=== PATIENT | male | born 1965 | race Caucasian/White ===

== ENCOUNTER 2023-02-21 01:01 | Inpatient (IN) | payer MEDICAID, OTHER ==
[~2023-02-21] VITALS: Ht 188 cm; Wt 112.4 kg
[2023-02-21] VITALS (10 sets, daily range): BP systolic 104–134; BP diastolic 60–81
[2023-02-21 01:37] LABS: BASOPHILS # (AUTO) 0.1 10^3/uL (0.0-0.1); BASOPHILS % (AUTO) 1 % (0-10); EOSINOPHILS # (AUTO) 0.4 10^3/uL (0.0-0.3); EOSINOPHILS % (AUTO) 1 % (0-10); HEMATOCRIT 45 % (40-54); HEMOGLOBIN 15.1 g/dL (13.3-17.7); LYMPHOCYTES # (AUTO) 2.1 10^3/uL (1.0-4.0); LYMPHOCYTES % (AUTO) 8 % (12-44); MEAN CORPUSCULAR HEMOGLOBIN 29 pg (25-34); MEAN CORPUSCULAR HGB CONC 34 g/dL (32-36); MEAN CORPUSCULAR VOLUME 87 fL (80-99); MEAN PLATELET VOLUME 9.2 fL (9.0-12.2); MONOCYTES # (AUTO) 2.8 10^3/uL (0.0-1.0); MONOCYTES % (AUTO) 11 % (0-12); NEUTROPHILS # (AUTO) 20.1 10^3/uL (1.8-7.8); NEUTROPHILS % (AUTO) 78 % (42-75); PLATELET COUNT 329 10^3/uL (130-400); WHITE BLOOD COUNT 25.6 10^3/uL (4.3-11.0)
[2023-02-21 01:48] LABS: CHLORIDE 101 MMOL/L (98-107); SODIUM 129 MMOL/L (135-145)
--- NOTE | 2023-02-21 01:48 | ED Lower Extremity ---
General Chief Complaint: Skin/Wound Problems Stated Complaint: LEFT LEG SWOLLEN,RED,DIABETIC Nursing Triage Note: PATIENT ARRIVED WITH COMPLAINT OF LEFT LOWER LEG REDNESS/SWELLING/PAIN. PATIENT VERBALIZED DIABETIC FOR ONE MONTH, STATES LIVES IN , BUT DOESNT HAVE A LOCAL PHYSICIAN. PATIENT UNABLE TO PUT WEIGHT ON LEFT LEG/FOOT. Source: patient History of Present Illness Date Seen by Provider: Feb 21, 2023 Time Seen by Provider: 01:20 Initial Comments PT ARRIVES VIA POV WITH A FEMALE PT STATES HE IS HERE VISITING FROM [place] C/O PAIN, REDNESS, AND SWELLING TO LEFT LOWER LEG, AND NOTICED A SMALL SORE ON HIS CALF YESTERDAY NO KNOWN INJURY NO KNOWN FEVER, BUT HAS BEEN SWEATING WHEN HE SLEEPS YESTERDAY AND TODAY, AND HAS BEEN SLEEPING MORE YESTERDAY AND TODAY PT STATES HE WAS HOSPITALIZED AT [facility] FOR 4 DAYS, ABOUT 2 MONTHS AGO, AND WAS DIAGNOSED WITH DIABETES HE HAS NOT FOLLOWED UP WITH ANYONE, AND IS NOT TAKING ANY MEDICATIONS OF ANY KIND HE DOES NOT HAVE A DR ANYWHERE PT STATES HE WAS DIAGNOSED WITH A BRAIN TUMOR--"CANCER"-- IN 2004 AND STATES IT WAS "INOPERABLE" AND HE STATES THAT HE REFUSED ALL TREATMENT --NO CHEMO, NO RADIATION HE DOES NOT SEE AN ONCOLOGIST OR NEUROLOGIST HE SMOKES 1 PPD HE HAS HISTORY OF ALCOHOL ABUSE--DRANK 1 LITER OF WHISKEY PLUS A CASE OF BEER EVERY DAY--CLAIMS NONE X 24 YEARS HE ADMITS TO MARIJUANA USE "YEARS AGO", AND DENIES ANY RECENT USE. DENIES EVER USING ANY OTHER DRUGS OF ANY KIND. PCP: NONE Allergies and Home Medications Allergies Coded Allergies: NSAIDS (Non-Steroidal Anti-Inflamma (Unverified Allergy, Severe, Anaphylaxis, 02/21/23) aspirin (Unverified Allergy, Severe, Anaphylaxis, 02/21/23) Review of Systems Constitutional: see HPI, diaphoresis, malaise EENTM: no symptoms reported Respiratory: no symptoms reported Cardiovascular: no symptoms reported Gastrointestinal: no symptoms reported Genitourinary: no symptoms reported Musculoskeletal: see HPI Skin: see HPI Psychiatric/Neurological: No Symptoms Reported Past Alzbrkx-Mlnxka-Fxjego Hx Patient Social History Tobacco Use?: Yes Tobacco type used: Cigarettes Smoking Status: Current Everyday Smoker Substance use?: Yes Substance type: Marijuana Alcohol Use?: Yes Alcohol type: Beer, Hard Liquor Past Medical History Surgeries: No Respiratory: No Cardiac: No Neurological: Yes Brain Tumor Genitourinary: No Gastrointestinal: No Musculoskeletal: No Endocrine: Yes (DX 12/2022) Diabetes, Non-Insulin dep Cancer: Yes Brain Did You Recieve Any Treatments: No PT CLAIMS HE WAS DX WITH BRAIN TUMOR THAT WAS CANCER IN 2004. HE STATES IT IS "INOPERABLE" AND HE REFUSED ALL TREATMENT--NO CHEMO OR RADIATION Psychosocial: No Integumentary: No Blood Disorders: No Family Medical History SOCIAL HISTORY: HE SMOKES 1 PPD HE HAS HISTORY OF ALCOHOL ABUSE--DRANK 1 LITER OF WHISKEY PLUS A CASE OF BEER EVERY DAY--CLAIMS NONE X 24 YEARS HE ADMITS TO MARIJUANA USE "YEARS AGO", AND DENIES ANY RECENT USE. DENIES EVER USING ANY OTHER DRUGS OF ANY KIND. Physical Exam Vital Signs Vital Signs - First Documented 02/21/23 01:16 Temp 37.2 Pulse 114 Resp 20 B/P (MAP) 124/80 (95) Pulse Ox 95 O2 Delivery Room Air Capillary Refill : Less Than 3 Seconds Height, Weight, BMI Height: '" Weight: lbs. oz. kg; 32.00 BMI Method: Progress/Results/Core Measures Results/Orders Lab Results Laboratory Tests Test 02/21/23 01:25 02/21/23 01:26 Range/Units White Blood Count 25.6 H 4.3-11.0 10^3/uL Red Blood Count 5.17 4.30-5.52 10^6/uL Hemoglobin 15.1 13.3-17.7 g/dL Hematocrit 45 40-54 % Mean Corpuscular Volume 87 80-99 fL Mean Corpuscular Hemoglobin 29 25-34 pg Mean Corpuscular Hemoglobin Concent 34 32-36 g/dL Red Cell Distribution Width 12.2 10.0-14.5 % Platelet Count 329 130-400 10^3/uL Mean Platelet Volume 9.2 9.0-12.2 fL Immature Granulocyte % (Auto) 1 % Neutrophils (%) (Auto) 78 H 42-75 % Lymphocytes (%) (Auto) 8 L 12-44 % Monocytes (%) (Auto) 11 0-12 % Eosinophils (%) (Auto) 1 0-10 % Basophils (%) (Auto) 1 0-10 % Neutrophils # (Auto) 20.1 H 1.8-7.8 10^3/uL Lymphocytes # (Auto) 2.1 1.0-4.0 10^3/uL Monocytes # (Auto) 2.8 H 0.0-1.0 10^3/uL Eosinophils # (Auto) 0.4 H 0.0-0.3 10^3/uL Basophils # (Auto) 0.1 0.0-0.1 10^3/uL Immature Granulocyte # (Auto) 0.2 H 0.0-0.1 10^3/uL Glucometer 249 H 70-110 MG/DL My Orders Orders - MARIA ALEJANDRA SALEEM DO Ed Iv/Invasive Line Start (02/21/23:21) Monitor-Rhythm Ecg Trace Only (02/21/23) Alcohol (02/21/23) Cbc With Automated Diff (02/21/23) Comprehensive Metabolic Panel (02/21/23) Hs C Reactive Protein (02/21/23) Drug Screen Stat (Urine) (02/21/23) Lactic Acid Analyzer (02/21/23) Magnesium (02/21/23) Protime With Inr (02/21/23) Partial Thromboplastin Time (02/21/23) Ua Culture If Indicated (02/21/23) Blood Culture (02/21/23) Erythrocyte Sedimentation Rate (02/21/23) Myoglobin Serum (02/21/23) Ed Iv/Invasive Line Start (02/21/23) Ed Iv/Invasive Line Start (02/21/23:) Vital Signs Adult Sepsis Patie Q15M (02/21/23 01:21) O2 (02/21/23:) Remove Rings In Anticipation O (02/21/23:) Accucheck Stat ONCE (02/21/23) Manual Differential (02/21/23 01:25) Vital Signs/I&O 02/21/23 01:16 Temp 37.2 Pulse 114 Resp 20 B/P (MAP) 124/80 (95) Pulse Ox 95 O2 Delivery Room Air Blood Pressure Mean: 95 FSBG Bedside Testing Finger Stick Blood Glucose: 249 Blood Glucose Action Taken: RN NOTIFIED Departure Departure-Patient Inst. Referrals: NO,LOCAL PHYSICIAN (PCP/Family) Primary Care Physician MARIA ALEJANDRA SALEEM DO Feb 21, 2023 01:48
[2023-02-21 01:49] LABS: CALCIUM 9.7 MG/DL (8.5-10.1); INR 1.2 (0.8-1.4); PROTHROMBIN TIME PATIENT 15.6 SEC (12.2-14.7)
[2023-02-21 01:51] LABS: GLUCOSE 246 MG/DL (70-105)
[2023-02-21 01:52] LABS: BILIRUBIN,TOTAL 1.1 MG/DL (0.1-1.0); CARBON DIOXIDE 19 MMOL/L (21-32)
[2023-02-21 01:54] LABS: ALKALINE PHOSPHATASE 90 U/L (40-136)
[2023-02-21 01:55] LABS: CREATININE SERUM 0.87 MG/DL (0.60-1.30); GFR ESTIMATED 101
[2023-02-21 01:56] LABS: BUN/CREATININE RATIO 10
[2023-02-21 01:57] LABS: ALANINE AMINOTRANSFERASE 16 U/L (0-55)
[2023-02-21 01:58] LABS: MAGNESIUM 1.8 MG/DL (1.6-2.4)
[2023-02-21] MEDS ORDERED: PIPERACILLIN SODIUM/TAZOBACTAM 4.5 GM in NS (IVPB) 100 ML IV ONE (02:00)
[2023-02-21] MEDS ORDERED: NS IV 1000 ML 1,000 ML IV SCH ×2 (02:00→03:00)
[2023-02-21 02:08] LABS: EOSINOPHILS % (MANUAL) 1 %; LYMPHOCYTES % (MANUAL) 8 %; MONOCYTES % (MANUAL) 9 %; NEUTROPHILS % (MANUAL) 82 %; RBC MORPH NORMAL
[2023-02-21 02:09] LABS: ERYTHROCYTE SEDIMENTATION RATE 22 MM/HR (0-30)
[2023-02-21] MEDS: VANCOMYCIN INJECTION 1,000 MG in NS (IVPB) 250 ML IV SCH ×2 (02:47→03:48)
[2023-02-21] MEDS ORDERED: TETANUS,DIPTH,PERTUSS P/F (BOOSTRIX) 0.5 ML VIAL IM ONE (03:15)
[2023-02-21] MEDS ORDERED: fentaNYL INJ 100 MCG/2 ML AMP IV PRN ×2 (04:45→09:15)
[2023-02-21] MEDS ORDERED: ACETAMINOPHEN 500 MG TAB (TYLENOL) PO PRN ×2 (04:45→12:45)
[2023-02-21] MEDS ORDERED: ONDANSETRON 4 MG/2 ML (SDV) Z0FRAN IV PRN ×2 (04:45→09:15)
[2023-02-21] MEDS: NS IV 1000 ML 1,000 ML IV SCH ×3 (05:00→16:59)
[2023-02-21 05:14] LABS: BILIRUBIN,URINE NEGATIVE (NEGATIVE); CLARITY,URINE CLEAR; COLOR,URINE YELLOW; GLUCOSE, URINE (UA) 2+ (NEGATIVE); KETONES,URINE NEGATIVE (NEGATIVE); LEUKOCYTE ESTERASE ,URINE NEGATIVE (NEGATIVE); NITRITE,URINE NEGATIVE (NEGATIVE); PROTEIN,URINE TRACE (NEGATIVE)
[2023-02-21 05:33] LABS: AMPHETAMINE SCREEN, URINE POSITIVE (NEGATIVE); BARBITURATE SCREEN URINE NEGATIVE (NEGATIVE); BENZODIAZEPINES SCREEN URINE NEGATIVE (NEGATIVE); CANNABINOID SCREEN, URINE POSITIVE (NEGATIVE); COCAINE SCREEN URINE NEGATIVE (NEGATIVE); METHADONE STAT NEGATIVE (NEGATIVE); OPIATE SCREEN URINE NEGATIVE (NEGATIVE); OXYCODONE STAT NEGATIVE (NEGATIVE); PROPOXYPHENE STAT NEGATIVE (NEGATIVE); TRICYCLIC ANTIDEPRESSANTS SCRE NEGATIVE (NEGATIVE)
[2023-02-21 05:35] LABS: BACTERIA,URINE NEGATIVE /HPF; WBC,URINE 0-2 /HPF
[2023-02-21] MEDS: inSUlin ASPART (NovoLOG) 1 UNIT/0.01 ML (CHARGE PER UNIT) SC SCH ×4 (05:59→20:07)
--- NOTE | 2023-02-21 07:49 | Diagnostic Imaging Report ---
INDICATION: Sepsis. Time of Exam: 1:57 AM No prior studies are available for comparison. FINDINGS: The heart size is normal. The pulmonary vascularity is unremarkable. The lungs are clear. No infiltrate, effusion or pneumothorax is detected. IMPRESSION: No acute cardiopulmonary process is detected. Dictated by: Dictated on workstation # [id number]
[2023-02-21] MEDS: PIPERACILLIN SODIUM/TAZOBACTAM 4.5 GM in NS (IVPB) 100 ML IV SCH ×3 (08:13→23:20)
[2023-02-21] MEDS ORDERED: CALCIUM CARBONATE 500 MG (TUMS) TAB.CHEW PO PRN (09:15)
[2023-02-21] MEDS ORDERED: ANTACID SUSP 30 ML UDC (MYLANTA) PO PRN (09:15)
[2023-02-21] MEDS ORDERED: MILK OF MAGNESIA 400 MG/5 ML 30 ML UDC PO PRN (09:15)
[2023-02-21] MEDS ORDERED: NS IV 500 ML 500 ML IV PRN (09:15)
[2023-02-21] MEDS ORDERED: diphenhydrAMINE 50 MG/ML INJ (BENADRYL) IVP PRN (09:15)
[2023-02-21] MEDS ORDERED: MELATONIN 3 MG TABLET PO PRN (09:15)
[2023-02-21] MEDS ORDERED: BISACODYL 10 MG SUPP (DULCOLAX) PR PRN (09:15)
[2023-02-21] MEDS ORDERED: LACTULOSE SYRUP 10GM/15ML (ENULOSE) 30ML UDC PO PRN (09:15)
[2023-02-21] MEDS ORDERED: HYDROcodone/APAP 5 MG/325 MG (LORTAB) TAB PO PRN (09:15)
[2023-02-21] MEDS ORDERED: diphenhydrAMINE 25 MG TAB (BENADRYL) PO PRN (09:15)
[2023-02-21] MEDS ORDERED: ONDANSETRON 4 MG (ZOFRAN) ORAL DISSOLVE TAB PO PRN (09:15)
[2023-02-21] MEDS ORDERED: polyethylene glycoL POWDER 17 GM (MIRALAX) PACK PO PRN (09:15)
--- NOTE | 2023-02-21 09:49 | Diagnostic Imaging Report ---
Indication: Cellulitis. Grayscale, color-flow and duplex Doppler evaluation of the left lower extremity arterial system was performed. There is a mixture of monophasic, biphasic and triphasic waveforms throughout the left lower extremity arterial system. No significant velocity elevation is seen. No high-grade stenosis or occlusion is identified. There is monophasic flow at the left ankle within the posterior tibial and dorsalis pedis arteries. IMPRESSION: No evidence of high-grade stenosis or occlusion. Dictated by: Dictated on workstation # [id number]
[2023-02-21] MEDS: ENOXAPARIN 40 MG/0.4 ML (LOVENOX) SYR SC SCH (10:16)
[2023-02-21] MEDS: VANCOMYCIN 1,750 MG/NS 500 ML IVPB IV SCH ×2 (14:45)
--- NOTE | 2023-02-21 15:02 | History & Physical-Hospitalist ---
History of Present Illness HPI/Chief Complaint Zaki Herr is a 57 year old male with PMH T2DM who presented with left leg redness and swelling. He says it started a couple days ago. He has a cut on the back of his leg. He is also having pain. He denies numbness and tingling. He denies fevers and chills. He denies nausea and vomiting. He was diagnosed with diabetes about a month ago. He has been taking Metformin since that time. He is from [place] and is just down here visiting a friend. Source: patient Exam Limitations: no limitations Date Seen 02/21/23 Time Seen by a Provider: 10:20 Attending Physician No,Local Physician PCP Admitting Physician: Michelle Miller MD Attending Physician: Michelle Miller MD Referring Physician Date of Admission Feb 21, 2023 at 03:58 Home Medications & Allergies Home Medications Reviewed patient Home Medication Reconciliation performed by pharmacy medication reconciliations air analysis engineering technician and/or nursing. Patients Allergies have been reviewed. Allergies Allergies Coded Allergies NSAIDS (Non-Steroidal Anti-Inflamma (Unverified Allergy, Severe, Anaphylaxis, 02/21/23) aspirin (Unverified Allergy, Severe, Anaphylaxis, 02/21/23) Past Kyxxyaf-Yyftwk-Wjjnue Hx Patient Social History Tobacco Use?: No Tobacco type used: Cigarettes Smoking Status: Former Smoker Substance use?: No Substance type: Marijuana Alcohol Use?: No Alcohol type: Beer, Hard Liquor Pt feels they are or have been: No Immunizations Up To Date Tetanus Booster (TDap): Less Than 5 Years Current Status Advance Directives: No Communicates: Verbally Primary Language: Turkmen Preferred Spoken Language: Turkmen Is interpretation needed?: No Past Medical History Brain Tumor Diabetes, Non-Insulin dep Brain Did You Recieve Any Treatments: No PT CLAIMS HE WAS DX WITH BRAIN TUMOR THAT WAS CANCER IN 2004. HE STATES IT IS "INOPERABLE" AND HE REFUSED ALL TREATMENT--NO CHEMO OR RADIATION Blood Disorders: No Family Medical History No Pertinent Family Hx SOCIAL HISTORY: HE SMOKES 1 PPD HE HAS HISTORY OF ALCOHOL ABUSE--DRANK 1 LITER OF WHISKEY PLUS A CASE OF BEER EVERY DAY--CLAIMS NONE X 24 YEARS HE ADMITS TO MARIJUANA USE "YEARS AGO", AND DENIES ANY RECENT USE. DENIES EVER USING ANY OTHER DRUGS OF ANY KIND. Review of Systems Constitutional: no symptoms reported Respiratory: no symptoms reported Cardiovascular: no symptoms reported Gastrointestinal: no symptoms reported Skin: change in color Physical Exam Physical Exam Vital Signs Vital Signs - First Documented 02/21/23 01:16 Temp 37.2 Pulse 114 Resp 20 B/P (MAP) 124/80 (95) Pulse Ox 95 O2 Delivery Room Air Capillary Refill : Less Than 3 Seconds Height, Weight, BMI Height: '" Weight: lbs. oz. kg; 31.80 BMI Method: General Appearance: No Apparent Distress, Obese HEENT: PERRL/EOMI, Pharynx Normal Neck: Normal Inspection, Supple Respiratory: Lungs Clear, No Respiratory Distress Cardiovascular: Regular Rate, Rhythm, No Murmur Gastrointestinal: Normal Bowel Sounds, Non Tender, Soft Extremity: Inflammation, Swelling, Other (left leg above ankle) Neurologic/Psychiatric: Alert, Oriented x3, No Motor/Sensory Deficits Reflexes: 1+ Knee (L) Skin: Rash Results Results/Procedures Labs Laboratory Tests 02/21/23 01:25 Patient resulted labs reviewed. Imaging: Reviewed Imaging Report Assessment/Plan Admission Diagnosis Sepsis due to cellulitis Admission Status: Inpatient Order (span 2 midnights) Reason for Inpatient Admission: IV antibiotics Assessment and Plan Sepsis due to cellulitis Improving from area marked IV antibiotics IV fluids T2DM Continue Metformin Sliding scale insulin A1C pending Methamphetamine use Cannabis use UDS positive Recommend cessation DVT prophylaxis: Lovenox Diagnosis/Problems Diagnosis/Problems (1) Sepsis due to cellulitis Status: Acute (2) T2DM (type 2 diabetes mellitus) Status: Acute Qualifiers: Diabetes mellitus usp insulin use: without long chain quiller tender use Diabetes mellitus complication status: without complication Qualified Codes: E11.9 - Type 2 diabetes mellitus without complications (3) Marijuana use Status: Acute (4) Methamphetamine use Status: Acute (5) Obesity Status: Chronic MICHELLE MILLER MD Feb 21, 2023 15:02
[2023-02-21] MEDS: metFORMIN 500 MG (GLUCOPHAGE) TAB PO SCH (16:58)
[2023-02-21] MEDS: SENNOSIDES 8.6 MG (SENOKOT) TAB PO SCH (20:09)
[2023-02-21] MEDS: DOCUSATE SODIUM 100 MG (COLACE) CAP PO SCH (20:09)
[2023-02-22] MEDS: NS IV 1000 ML 1,000 ML IV SCH ×2 (01:22→08:20)
[2023-02-22] MEDS: VANCOMYCIN 1,750 MG/NS 500 ML IVPB IV SCH ×2 (01:22)
[2023-02-22 03:48] VITALS: BP 132/64
[2023-02-22] MEDS: inSUlin ASPART (NovoLOG) 1 UNIT/0.01 ML (CHARGE PER UNIT) SC SCH ×2 (05:22→11:46)
[2023-02-22] MEDS ORDERED: KCL 20 MEQ TAB (K-DUR) PO SCH (06:00)
[2023-02-22] MEDS ORDERED: MAGNESIUM 1 GM/100 ML IVPB 100 ML IV SCH (06:00)
[2023-02-22] MEDS ORDERED: POTASSIUM BICARB 20 MEQ (EFFER-K) TABLET PO SCH (06:00)
[2023-02-22] MEDS ORDERED: POTASSIUM CL 10MEQ/50ML IVPB 50 ML IV SCH (06:00)
[2023-02-22 06:10] LABS: BASOPHILS # (AUTO) 0.1 10^3/uL (0.0-0.1); BASOPHILS % (AUTO) 1 % (0-10); EOSINOPHILS # (AUTO) 0.6 10^3/uL (0.0-0.3); EOSINOPHILS % (AUTO) 4 % (0-10); HEMATOCRIT 41 % (40-54); HEMOGLOBIN 13.3 g/dL (13.3-17.7); LYMPHOCYTES # (AUTO) 2.1 10^3/uL (1.0-4.0); LYMPHOCYTES % (AUTO) 16 % (12-44); MEAN CORPUSCULAR HEMOGLOBIN 29 pg (25-34); MEAN CORPUSCULAR HGB CONC 33 g/dL (32-36); MEAN CORPUSCULAR VOLUME 89 fL (80-99); MEAN PLATELET VOLUME 9.5 fL (9.0-12.2); MONOCYTES # (AUTO) 1.4 10^3/uL (0.0-1.0); MONOCYTES % (AUTO) 11 % (0-12); NEUTROPHILS # (AUTO) 8.8 10^3/uL (1.8-7.8); NEUTROPHILS % (AUTO) 67 % (42-75); PLATELET COUNT 299 10^3/uL (130-400); WHITE BLOOD COUNT 13.1 10^3/uL (4.3-11.0)
[2023-02-22 06:39] LABS: CALCIUM 9.1 MG/DL (8.5-10.1); CREATININE SERUM 0.73 MG/DL (0.60-1.30); MAGNESIUM 1.8 MG/DL (1.6-2.4)
[2023-02-22] MEDS: MAGNESIUM 1 GM/100 ML IVPB 100 ML IV SCH ×2 (06:47→08:20)
[2023-02-22] MEDS: metFORMIN 500 MG (GLUCOPHAGE) TAB PO SCH (06:47)
[2023-02-22 07:41] VITALS: BP 111/74
[2023-02-22] MEDS: ENOXAPARIN 40 MG/0.4 ML (LOVENOX) SYR SC SCH (08:20)
[2023-02-22] MEDS: SENNOSIDES 8.6 MG (SENOKOT) TAB PO SCH (08:20)
[2023-02-22] MEDS: PIPERACILLIN SODIUM/TAZOBACTAM 4.5 GM in NS (IVPB) 100 ML IV SCH (08:20)
[2023-02-22] MEDS: DOCUSATE SODIUM 100 MG (COLACE) CAP PO SCH (08:20)
[2023-02-22] MEDS ORDERED: METF-399 PO (11:12)
--- NOTE | 2023-02-22 11:33 | Discharge Summary ---
Diagnosis/Chief Complaint Date of Admission Feb 21, 2023 at 03:58 Date of Discharge Discharge Date: Feb 22, 2023 Admission Diagnosis Sepsis due to cellulitis Primary Care No,Local Physician Discharge Diagnosis (1) Sepsis due to cellulitis Status: Acute (2) T2DM (type 2 diabetes mellitus) Status: Acute (3) Marijuana use Status: Acute (4) Methamphetamine use Status: Acute (5) Obesity Status: Chronic Discharge Summary Discharge Physical Exam Allergies: Coded Allergies: NSAIDS (Non-Steroidal Anti-Inflamma (Unverified Allergy, Severe, Anaphylaxis, 02/21/23) aspirin (Unverified Allergy, Severe, Anaphylaxis, 02/21/23) Vitals & I&Os Vital Signs Date Time Temp Pulse Resp B/P (MAP) Pulse Ox O2 Delivery O2 Flow Rate FiO2 02/22/23 08:52 Room Air 02/22/23 07:41 37.0 79 18 111/74 (86) 97 General Appearance: No Apparent Distress, WD/WN Respiratory: Lungs Clear, No Accessory Muscle Use Cardiovascular: Regular Rate, Rhythm, No Murmur Gastrointestinal: Soft Extremity: Other (mild erythema of the left lower leg slightly worse on the posterior aspect though well within the demarcation, edema noted but not pitting) Neurologic/Psychiatric: Alert, Oriented x3 Hospital Course Patient was admitted to the hospital secondary to cellulitis of the left lower extremity. He had significant edema and erythema on arrival that was demarcated. He was started on antibiotics intravenously and improved. Erythema was much improved and only present on the posterior aspect of his lower left leg. He did have some edema this was nonpitting in nature and ultrasound was done which showed no DVT. Blood cultures were negative x24 hours and he was discharged home in stable and improved condition to follow-up with a primary care physician in the next week. Labs (last 24 hrs) Laboratory Tests 02/21/23 15:48: Glucometer 164H 02/21/23 19:59: Glucometer 195H 02/22/23 05:21: Glucometer 128H 02/22/23 05:23: Sodium Level 136, Potassium Level 4.0, Chloride Level 107, Carbon Dioxide Level 21, Anion Gap 8, Blood Urea Nitrogen 8, Creatinine 0.73, Estimat Glomerular Filtration Rate 106, BUN/Creatinine Ratio 11, Glucose Level 124H, Calcium Level 9.1, Magnesium Level 1.8 02/22/23 05:33: White Blood Count 13.1H, Red Blood Count 4.59, Hemoglobin 13.3, Hematocrit 41, Mean Corpuscular Volume 89, Mean Corpuscular Hemoglobin 29, Mean Corpuscular Hemoglobin Concent 33, Red Cell Distribution Width 12.6, Platelet Count 299, Mean Platelet Volume 9.5, Immature Granulocyte % (Auto) 1, Neutrophils (%) (Auto) 67, Lymphocytes (%) (Auto) 16, Monocytes (%) (Auto) 11, Eosinophils (%) (Auto) 4, Basophils (%) (Auto) 1, Neutrophils # (Auto) 8.8H, Lymphocytes # (Auto) 2.1, Monocytes # (Auto) 1.4H, Eosinophils # (Auto) 0.6H, Basophils # (Auto) 0.1, Immature Granulocyte # (Auto) 0.1 Patient resulted labs reviewed. Pending Labs Laboratory Tests 02/22/23 05:21: Glucometer 128 02/22/23 05:23: Sodium Level 136, Potassium Level 4.0, Chloride Level 107, Carbon Dioxide Level 21, Anion Gap 8, Blood Urea Nitrogen 8, Creatinine 0.73, Estimat Glomerular Filtration Rate 106, BUN/Creatinine Ratio 11, Glucose Level 124, Calcium Level 9.1, Magnesium Level 1.8 02/22/23 05:33: White Blood Count 13.1, Red Blood Count 4.59, Hemoglobin 13.3, Hematocrit 41, Mean Corpuscular Volume 89, Mean Corpuscular Hemoglobin 29, Mean Corpuscular Hemoglobin Concent 33, Red Cell Distribution Width 12.6, Platelet Count 299, Mean Platelet Volume 9.5, Immature Granulocyte % (Auto) 1, Neutrophils (%) (Auto) 67, Lymphocytes (%) (Auto) 16, Monocytes (%) (Auto) 11, Eosinophils (%) (Auto) 4, Basophils (%) (Auto) 1, Neutrophils # (Auto) 8.8, Lymphocytes # (Auto) 2.1, Monocytes # (Auto) 1.4, Eosinophils # (Auto) 0.6, Basophils # (Auto) 0.1, Immature Granulocyte # (Auto) 0.1 Imaging: Reviewed Imaging Report Discussion & Recommendations Discharge Planning: >30 minutes discharge planning Discharge Home Medications: Active Scripts Active Reported Metformin HCl 1,000 Mg Tablet 1,000 Mg PO BID LAST FILLED 04-12-2023 #60/30 DAY SUPPLY Instructions to patient/family Please see electronic discharge instructions given to patient. Problem Qualifiers (1) T2DM (type 2 diabetes mellitus): Diabetes mellitus oysterman insulin use: without oysterman use Diabetes mellitus complication status: without complication Qualified Codes: E11.9 - Type 2 diabetes mellitus without complications JESSICA COREY MD Feb 22, 2023 11:33
--- NOTE | 2023-02-22 11:36 | Discharge Inst-Simple/Standard ---
Discharge Inst-Standard Discharge Medications New, Converted or Re-Newed RX: Transmitted to Pharmacy Patient Instructions/Follow Up Plan of Care/Instructions/FU: Please continue to take your medications as written. Please follow up with your primary care doctor to follow up this hospital stay. Activity as Tolerated: Yes Discharge Diet: No Restrictions Return to The Hospital For: Chest pain, shortness of breath, fever, weakness, if you feel you are getting worse. JESSICA COREY MD Feb 22, 2023 11:36
[2023-02-22] MEDS ORDERED: SULF-221 PO (11:46)
[2023-02-22] MEDS ORDERED: CEPH500T PO (11:46)
[2023-02-22] MEDS ORDERED: METF-397 PO (11:46)
[2023-02-22] MEDS ORDERED: TROUGH ORDER-PHARMACY XX NR (12:00)
[2023-02-22 12:06] VITALS: BP 113/73
== END 2023-02-22 13:36 | disposition home or self-care (01) | DRG 872 ==
LOC: ER 01:06 → CSD 03:58 → 4TH 13:35
PROVIDERS: ADMIT Internal Medicine; ATTEND Family Medicine
DX: A41.9 Sepsis, unspecified organism (principal); L03.116 Cellulitis of left lower limb; C71.9 Malignant neoplasm of brain, unspecified; E11.9 Type 2 diabetes mellitus without complications; Z79.84 Long term (current) use of oral hypoglycemic drugs; F17.210 Nicotine dependence, cigarettes, uncomplicated; E66.9 Obesity, unspecified; Z68.32 Body mass index [BMI] 32.0-32.9, adult; F15.90 Other stimulant use, unspecified, uncomplicated; F12.90 Cannabis use, unspecified, uncomplicated; Z88.6 Allergy status to analgesic agent; Z23 Encounter for immunization
CPT/HCPCS: 36415; 71045; 80048; 80053; 80202; 80306; 80320; 81000; 82805; 82947; 83036; 83605; 83735; 83874; 85007; 85025; 85027; 85610; 85652; 85730; 86141; 87040; 87088; 90715; 93926; G0378